=== PATIENT | male | born 1975 | race Caucasian/White ===

== ENCOUNTER → 2016-11-17 | Outpatient (CLI) | payer OTHER ==
--- NOTE | 2016-11-17 15:11 | REP ---
FIVE VIEW LEFT KNEE SERIES, 11/17/2016: INDICATION: Pain. Comparison made with prior left knee series 06/10/2015. FINDINGS: There is mild to moderate narrowing within the medial joint compartment of the left knee and mild patellofemoral joint space narrowing. There is no lateral joint space narrowing. Moderate spur is noted at the quadriceps tendinous insertion site on the superior patella, which represents progression when compared with prior study. There is no acute fracture or dislocation. There is no suprapatellar effusion. IMPRESSION: 1. Mild to moderate narrowing of the medial joint space. Mild patellofemoral joint space narrowing. 2. Progression of spurring at the quadriceps tendinous insertion on patella. Unreviewed
== END ==
LOC: M WUC 11:46
PROVIDERS: ATTEND Physician Assistant
DX: M25.862 Other specified joint disorders, left knee (principal); M25.762 Osteophyte, left knee

== ENCOUNTER → 2017-03-21 | Outpatient (CLI) | payer OTHER ==
--- NOTE | 2017-03-21 10:19 | REP ---
Clinical: Pain. Technique: AP, lateral, bilateral oblique views of the left ankle. Findings: Small chronic fragments adjacent to the medial malleolus suggest old injury. Mild soft tissue swelling is noted. There is no acute fracture dislocation. Ankle mortise is intact. Mild to moderate degenerative changes include subchondral sclerosis of the hind and midfoot articulations as well as subtle cortical irregularities and spurring. Evidence for old calcaneus fracture. 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 Signed by Obdulio Avila MD 03/21/2017 10:11 A
== END ==
LOC: M WUC 09:51
PROVIDERS: ATTEND Physician Assistant
DX: M19.072 Primary osteoarthritis, left ankle and foot (principal)

== ENCOUNTER → 2019-02-19 | Outpatient (REF) | payer OTHER | LOC: M SMT 12:55 | PROVIDERS: ATTEND Urology | DX: Z30.2 Encounter for sterilization (principal) ==

== ENCOUNTER → 2019-05-17 | Outpatient (REF) | payer OTHER ==
[2019-05-17 14:00] LABS: COMPLEMENT C3 159 MG/DL (90-180); COMPLEMENT C4 30 MG/DL (10-40)
[2019-05-17 14:21] LABS: TOTAL PROTEIN,RANDOM URINE 242.3 MG/DL (0.0-12.0); URINE TOTAL PROTEIN 242.3 MG/DL (0-12)
[2019-05-19 06:54] LABS: TOTAL PROTEIN,RANDOM URINE 242.3 MG/DL (0.0-12.0)
[2019-05-23 14:07] LABS: ANCA-ATYPICAL <1:20 titer (Neg:<1:20); ANTI DS-DNA AB <1:10 titer (.); ANTINUCLEAR ANTIBODIES DIRECT Negative (Negative); CYTOPLASMIC NEUTROP AB ANCA-C <1:20 titer (Neg:<1:20); PERINUCLEAR AB ANCA-P <1:20 titer (Neg:<1:20)
[2019-05-24 12:48] LABS: UPEP INTERPRETATION NO M-SPIKE NOTED; URINE VOLUME RANDOM ML
== END ==
LOC: M LAB REF 13:12
PROVIDERS: ATTEND Internal Medicine Nephrology
DX: N18.2 Chronic kidney disease, stage 2 (mild) (principal); R80.9 Proteinuria, unspecified

== ENCOUNTER → 2019-06-18 | Outpatient (REF) | payer OTHER ==
[2019-06-18 19:35] LABS: INR 0.98; PROTHROMBIN TIME 12.7 SECONDS (11.8-14.0)
== END ==
LOC: M LAB REF 18:54
PROVIDERS: ATTEND Internal Medicine Nephrology
DX: R80.9 Proteinuria, unspecified (principal); N28.1 Cyst of kidney, acquired; R31.9 Hematuria, unspecified

== ENCOUNTER → 2019-07-19 | Outpatient (CLI) | payer OTHER ==
[~2019-07-19] MED LIST: ALLO10TA PO; ENAL20TA PO; FENO145T13 PO; FURO20TA2 PO; JANU100T PO; LIDOCAINE 1% MDV 20ML VIAL As Ordered ONE; LIVA4TAB PO; MIDAZOLAM INJ 2 MG/2 ML VIAL (J2250) As Ordered ONE; MINO2.5T PO; OMEP40CA2 PO; SPIR50TA4 PO; fentaNYL 100 MCG/2 ML INJECTION (J3010) As Ordered ONE
--- NOTE | 2019-07-19 11:57 | IRHP ---
[facility] IR Pre-Procedure H & P General Date of Service: Jul 19, 2019 Procedure: Same Day Surgery Interval History and Physical I have seen the patient and reviewed last H & P performed within 30 days. There is no significant interval change. Patient is stable for procedure. History of Present Illness Chief Complaint The patient is a 43-year-old male admitted with a reason for visit of Hematuria. PRE-PROCEDURE DIAGNOSIS: renal disease HEART: normal rate. LUNGS: normal breathing at rest. ASA Classification ASA Classification: II-Mild systemic disease Mallampati Score: II NPO: Yes Problems with prior sedation: No Obstructive Sleep Apnea: No Plan moderate sedation Allergies Coded Allergies: morphine (Verified Adverse Reaction, Mild, N/V, 07/17/19) Home Medications Scheduled Allopurinol (Allopurinol), 300 MG PO DAILY, (Reported) Enalapril Maleate (Enalapril Maleate), 20 MG PO DAILY, (Reported) Fenofibrate Nanocrystallized (Fenofibrate), 145 MG PO DAILY, (Reported) Furosemide (Furosemide), 20 MG PO DAILY, (Reported) Minoxidil (Minoxidil), 2.5 MG PO DAILY, (Reported) Omeprazole (Omeprazole), 40 MG PO DAILY, (Reported) Pitavastatin Calcium (Livalo), 4 MG PO DAILY, (Reported) Sitagliptin Phosphate (Januvia), 100 MG PO DAILY, (Reported) Spironolactone (Spironolactone), 50 MG PO DAILY, (Reported) Discontinued Medications Pitavastatin Calcium (Livalo), 4 MG PO DAILY, (Reported) Discontinued Reason: Pt states not taking VS, I&O, 24H, Fishbone Vital Signs/I&O Vital Signs Date Time Temp Pulse Resp B/P (MAP) Pulse Ox O2 Delivery O2 Flow Rate FiO2 07/19/19 11:27 99 76 16 97 TOÑA FITZPATRICK MD Jul 19, 2019 11:57
--- NOTE | 2019-07-19 12:53 | POST-OPPD ---
Postoperative Procedure Note Date Of Procedure: Jul 19, 2019 Time Of Procedure: 12:52 PREOPERATIVE DIAGNOSIS: renal disease POSTOPERATIVE DIAGNOSIS: renal disease FINDINGS: normal left kidney PROCEDURE: bx SURGEON: astrid ANESTHESIA: moderate sedation SPECIMENS: cores x 3 ESTIMATED BLOOD LOSS: < 5 ml COMPLICATIONS: none POSTOPERATIVE CONDITION: stable TOÑA FITZPATRICK MD Jul 19, 2019 12:53
[2019-07-19 15:00] VITALS: BP 135/82
--- NOTE | 2019-07-19 15:22 | REP ---
IR CT guided kidney biopsy. IR moderate sedation. Clinical information: Hematuria. Renal disease. Physician: Dr. Buckley. Procedure: The patient was advised of the benefits, risks and alternatives of the procedure and informed consent was obtained. The time-out was performed with verification of the patient's name, MRN, site of procedure and type of procedure to be performed. The patient was positioned in the prone position on the table. The site was prepped and draped in the usual sterile fashion. Moderate sedation was performed by the physician including the presence of an independent trained observer who assisted in monitoring the patient's level of consciousness and physiologic status. Following the administration Fentanyl and Versed, the physician spent 45 minutes of continuous face to face time with the patient. Preliminary CT of the kidneys demonstrates unremarkable left kidney. The anticipated puncture site was anesthetized with lidocaine. Under intermittent CT guidance a 17 G coaxial needle was inserted into the mid/lower pole of the left kidney. A 18 Gauge biopsy device was inserted through the coaxial needle under intermittent CT guidance and used to obtain core biopsies of the left Kidney. The specimen was labeled with the patient's name and medical record number and sent for further analysis. The coaxial needle and biopsy device were removed, pressure held and hemostasis achieved. A follow-up CT through the area demonstrates no significant hematoma. A sterile dressing was applied to the site. The patient tolerated the procedure well and was returned to the PRU in stable condition. EBL: < 5 ml. Complications: None. Conclusion: 1. CT Kidney demonstrates unremarkable left kidney. 2. Successful CT guided core kidney biopsy. Patient to follow up with referring provider for biopsy results. Thank you for this referral. Electronically Signed by Katey Buckley MD 07/19/2019 03:20 P
== END ==
LOC: M IRPRO 11:13
PROVIDERS: ATTEND Radiology Diagnostic Radiology
DX: R31.9 Hematuria, unspecified (principal); N28.9 Disorder of kidney and ureter, unspecified; Z88.5 Allergy status to narcotic agent; Z79.899 Other long term (current) drug therapy
CPT/HCPCS: 50200; 76942; 77012; 88300; 99152; 99153; J2250; J3010

== ENCOUNTER → 2019-11-08 | Outpatient (REF) | payer BC, OTHER ==
[~2019-11-08] MED LIST changes: -LIDOCAINE 1% MDV 20ML VIAL As Ordered ONE; -MIDAZOLAM INJ 2 MG/2 ML VIAL (J2250) As Ordered ONE; -OMEP40CA2 PO; +OMEP40CA97 PO; -fentaNYL 100 MCG/2 ML INJECTION (J3010) As Ordered ONE
[2019-11-08 19:37] LABS: BLOOD UREA NITROGEN 24 MG/DL (7-18); CALCIUM LEVEL 9.5 MG/DL (8.5-10.1); CARBON DIOXIDE LEVEL 25 MEQ/L (21-32); CHLORIDE LEVEL 107 MEQ/L (98-107); CREATININE FOR GFR 1.19 MG/DL (0.70-1.30); GLOMERULAR FILTRATION RATE > 60.0 (>60); GLUCOSE, FASTING 126 MG/DL (70-100); PHOSPHORUS LEVEL 3.6 MG/DL (2.5-4.9); POTASSIUM SERUM 4.5 MEQ/L (3.5-5.1); SODIUM LEVEL 140 MEQ/L (136-145); URIC ACID 5.1 MG/DL (3.5-7.2)
== END ==
LOC: M LAB REF 16:59
PROVIDERS: ATTEND Internal Medicine Nephrology
DX: N28.1 Cyst of kidney, acquired (principal); R31.9 Hematuria, unspecified; M10.9 Gout, unspecified

== ENCOUNTER 2021-01-29 12:27 | Emergency (ER) | payer BC, OTHER ==
[~2021-01-29] VITALS: Ht 180.3 cm; Wt 12.7 kg
[~2021-01-29 12:27] MED LIST changes: -ENAL20TA PO; +ENAL20TA11 PO; -FENO145T13 PO; +FENO145T7 PO
[2021-01-29] MEDS ORDERED: METF500T13 (12:36)
[2021-01-29] MEDS ORDERED: ROSU10TA6 (12:36)
--- NOTE | 2021-01-29 13:13 | REP ---
INDICATION: CHEST PAIN. COMPARISON: Portable chest dated 12/03/2006. TECHNIQUE: Portable AP chest with the patient semi upright. FINDINGS: The lung valentin are clear. Cardiac size is normal. The albino, mediastinum and skeletal structures are unremarkable. IMPRESSION: Essentially negative portable chest <Electronically signed by Willy Conley > 01/29/21 [id number]
[2021-01-29 13:14] LABS: BASO # 0.1 10^3/uL (0.0-0.2); BASO % 0.6 % (0.0-1.0); EOS # 0.1 10^3/uL (0.0-0.5); EOS % 1.4 % (0.0-3.0); HEMATOCRIT 47.4 % (42.0-52.0); HEMOGLOBIN 16.4 g/dl (13.5-17.5); LYMPH # 1.8 10^3/uL (1.5-5.0); LYMPH % 18.7 % (24.0-44.0); MEAN CORPUSCULAR HEMOGLOBIN 29.9 pg (27.0-33.0); MEAN CORPUSCULAR HGB CONC 34.6 g/dl (32.0-36.5); MEAN CORPUSCULAR VOLUME 86.5 fl (80.0-96.0); MONO # 0.7 10^3/uL (0.0-0.8); MONO % 7.7 % (2.0-8.0); NEUTROPHILS # 6.8 10^3/uL (1.5-8.5); NEUTROPHILS % 71.1 % (36.0-66.0); PLATELET COUNT, AUTOMATED 282 10^3/uL (150-450); RED BLOOD COUNT 5.48 10^6/uL (4.30-6.10); WHITE BLOOD COUNT 9.5 10^3/uL (4.0-10.0)
[2021-01-29 13:52] LABS: ALBUMIN 3.8 GM/DL (3.2-5.2); BILIRUBIN,DIRECT 0.1 MG/DL (0.0-0.2); BILIRUBIN,TOTAL 0.4 MG/DL (0.2-1.0); THYROID STIMULATING HORMONE 1.87 uIU/ML (0.358-3.740); TOTAL PROTEIN 6.8 GM/DL (6.4-8.2)
[2021-01-29 18:38] VITALS: BP 141/81
--- NOTE | 2021-01-30 06:32 | ECGEPIP ---
[facility] - ED Test Date: 2021-01-29 Pat Name: DEVAN THRASHER Department: Room: - Gender: Male Communication Technician: DELVIN : 1975 Requested By: Alyssa Covington Order Number: [id number] Reading MD: Yusef Vyas Measurements Intervals [place] Rate: 78 P: 31 AL: 156 QRS: 21 QRSD: 92 T: 8 QT: 374 QTc: 426 Interpretive Statements Normal sinus rhythm Nonspecific ST T wave changes No prior ECG for comparison Electronically Signed on 01-30-2021 6:31:56 EDT by Yusef Vyas
--- NOTE | 2021-01-30 06:39 | ECGEPIP ---
[facility] - ED Test Date: 2021-01-29 Pat Name: DEVAN THRASHER Department: Room: - Gender: Male Configuration Management Administrator: JI : 1975 Requested By: CASI CAI Order Number: [id number] Reading MD: Yusef Vyas Measurements Intervals [place] Rate: 60 P: 44 IA: 152 QRS: 35 QRSD: 88 T: 22 QT: 402 QTc: 402 Interpretive Statements Normal sinus rhythm Nonspecific ST T wave changes cw 01/29/[address] T wave changes Electronically Signed on 01-30-2021 6:39:20 EDT by Yusef Vyas
== END 2021-01-29 18:45 | disposition home or self-care (01) ==
LOC: M ED 12:27
DX: R00.2 Palpitations (principal); R55 Syncope and collapse; E11.9 Type 2 diabetes mellitus without complications; I10 Essential (primary) hypertension; E78.5 Hyperlipidemia, unspecified; K21.9 Gastro-esophageal reflux disease without esophagitis; F17.220 Nicotine dependence, chewing tobacco, uncomplicated; Z88.6 Allergy status to analgesic agent; Z79.899 Other long term (current) drug therapy

== ENCOUNTER → 2021-06-11 | Outpatient (CLI) | payer BC ==
[~2021-06-11] MED LIST changes: +METF500T13; +OMEP40CA4 PO; -OMEP40CA97 PO; +ROSU10TA6
[2021-06-11 16:31] LABS: ALT/SGPT 32 U/L (12-78); CHOLESTEROL LEVEL 185 MG/DL (<200); CHOLESTEROL RISK RATIO 4.743 (<5); CPK CREATINE PHOSPHOKINASE 103 U/L (39-308); HDL CHOLESTEROL 39 MG/DL (>40); NON-HDL-C 146 MG/DL; TRIGLYCERIDES LEVEL 428 MG/DL (<150)
== END ==
LOC: M WUC 11:21
PROVIDERS: ATTEND Internal Medicine Cardiovascular Disease
DX: E78.2 Mixed hyperlipidemia (principal); Z79.899 Other long term (current) drug therapy